=== PATIENT | female | born 1965 | race Caucasian/White ===

== ENCOUNTER 2020-12-10 08:59 | Outpatient (CLI) | payer OTHER, SELFPAY | END 2020-12-10 09:00 | disposition home or self-care (01) | LOC: ANHCOVIDVC 08:59 | PROVIDERS: PCP Emergency Medicine | DX: Z23 Encounter for immunization (principal) | CPT/HCPCS: 0001A; 91300 ==

== ENCOUNTER 2020-12-31 09:06 | Outpatient (CLI) | payer OTHER, SELFPAY | END 2020-12-31 09:07 | disposition home or self-care (01) | LOC: ANHCOVIDVC 09:06 | PROVIDERS: PCP Emergency Medicine | DX: Z23 Encounter for immunization (principal) | CPT/HCPCS: 0002A; 91300 ==

== ENCOUNTER 2021-05-30 03:11 | Emergency (ER) | payer OTHER, SELFPAY ==
--- NOTE | ~2021-05-30 | XR_ITS ---
EXAMINATION: XR knee LT 3V EXAM DATE: 05/30/2021 03:54 INDICATION: Initial encounter following injury, with pain of the left knee. TECHNIQUE: Three projections of the left knee. There is no prior study for comparison. FINDINGS: No evidence osteochondral defect or joint body in the left knee joint. Mild to moderate pa tellofemoral, mild medial tibial femoral compartment primary osteoarthritis. No joint effusion. There are no acute fractures identified. No radiopaque foreign bodies identified. IMPRESSION: Left knee osteoarthritis, patellofemoral compartment most affected. Reviewed, dictated and finalized at location [facility].
[2021-05-30 03:15] VITALS: BP 149/70; PULSE 72; RESP 16; TEMP 36.4; O2SAT 98
--- NOTE | 2021-05-30 03:32 | ED.GENADULT ---
HPI - General Adult General Chief complaint: Extremity Injury, Lower Stated complaint: fall with left knee pain Time Seen by Provider: 05/30/21 03:24 History of Present Illness HPI narrative: Patient is a 55-year-old female presents the emergency department with chief complaint of left knee pain. Patient reports that she was upstairs at work and was attempting to her they walked to a bed alarm and fell. The patient states she landed on her left knee reports there is pain with movement and improved with rest patient has applied an ice pack patient reports that there is no laceration or other injury. Patient states that she did not strike her head had no loss of consciousness. Related Data Allergies Allergy/AdvReac Type Severity Reaction Status Date / Time No Known Allergies Allergy Unverified 05/30/21 03:26 Review of Systems Review of Systems: A 10 system review of systems was completed on the patient and is negative except for what is stated in the HPI. Nursing and ancillary documentation was reviewed. [facility] Family History Family History Mother Patient's mother is in good health Sibling Patient's brother is in good health Social History Social History Smoking status: Never smoker Alcohol intake: never Comments Past medical history significant for hypothyroidism Exam Narrative: GENERAL: Well-appearing, well-nourished, and in no acute distress. HEAD: Normocephalic, atraumatic. EYES: PERRLA and EOMI. ENT: Nares clear, no rhinorrhea or epistaxis. Mucous membranes moist. NECK: Supple. CHEST: Clear to auscultation. No respiratory distress. HEART: Regular rate and rhythm. No murmur heard. Normal peripheral pulses. ABDOMEN: Soft, nontender, nondistended, normal active bowel sounds. EXTREMITIES: Normal range of motion. No edema. There is tenderness to palpation in the left knee there is no bruising present. There is no deformity SKIN: Warm, dry, no rash. NEURO: No focal deficits. Alert and oriented x3. PSYCH: Normal mood and affect. Course Vital Signs Vital signs: Vital Signs Temperature 36.4 C L 05/30/21 03:15 Pulse Rate 72 05/30/21 03:15 Respiratory Rate 16 05/30/21 03:15 Blood Pressure 149/70 H 05/30/21 03:15 Pulse Oximetry 98 05/30/21 03:15 Temperature 36.4 C L 05/30/21 03:15 Pulse Rate 72 05/30/21 03:15 Respiratory Rate 16 05/30/21 03:15 Blood Pressure 149/70 H 05/30/21 03:15 Pulse Oximetry 98 05/30/21 03:15 Medical Decision Making Vital Signs Vital Signs: Vital Signs Temperature 36.4 C L 05/30/21 03:15 Pulse Rate 72 05/30/21 03:15 Respiratory Rate 16 05/30/21 03:15 Blood Pressure 149/70 H 05/30/21 03:15 Pulse Oximetry 98 05/30/21 03:15 Temperature 36.4 C L 05/30/21 03:15 Pulse Rate 72 05/30/21 03:15 Respiratory Rate 16 05/30/21 03:15 Blood Pressure 149/70 H 05/30/21 03:15 Pulse Oximetry 98 05/30/21 03:15 Discharge Plan Discharge Clinical Impression: Left knee sprain Qualifiers: Encounter type: initial encounter Involved ligament of knee: unspecified ligament Qualified Code(s): S83.92XA - Sprain of unspecified site of left knee, initial encounter Patient Disposition: Home, Self-Care Condition: Stable Instructions: Antibiotic Form, Knee Sprain (ED) Prescriptions: No Action levothyroxine 88 mcg tablet 88 mcg PO DAILY Qty: 30 RF: 2 Follow-up/Referrals: Jarvis Mills MD [Primary Care Provider] - Time of Disposition: 04:10
== END 2021-05-30 04:26 | disposition home or self-care (01) ==
PROVIDERS: Emergency Provider Emergency Medicine; PCP Emergency Medicine
DX: S83.92XA Sprain of unspecified site of left knee, initial encounter (principal); W18.30XA Fall on same level, unspecified, initial encounter
CPT/HCPCS: 73562; 99283

== ENCOUNTER 2021-06-30 11:12 | Emergency (ER) | payer OTHER, SELFPAY ==
[2021-06-30 11:22] VITALS: BP 147/79; PULSE 69; RESP 16; TEMP 36.4; O2SAT 100
--- NOTE | 2021-06-30 12:05 | ED.URI ---
HPI - URI/Sore Throat General Chief Complaint: Upper Respiratory Infection Stated Complaint: Cough,Sore Throat Time Seen by Provider: 06/30/21 12:07 Source: patient, RN notes reviewed and old records reviewed Mode of arrival: ambulatory Limitations: no limitations History of Present Illness HPI Narrative: 55-year-old female presents to the [facility] with complaints of cough and sore throat since this morning. Has used cough drops. No other treatment. Denies fevers, chest pain, coughing, abdominal pain, shortness of breath Has a history of thyroid disease denies any past surgical history MD elicited complaint: cough and sore throat Related Data Allergies Allergy/AdvReac Type Severity Reaction Status Date / Time No Known Allergies Allergy Verified 06/30/21 11:39 Review of Systems Review of Systems: All systems reviewed & are unremarkable except as noted in HPI and below Constitutional: Constitutional: Reports no additional constitutional complaints, Denies chills and Denies fever(s) Eyes: Eyes: Reports no additional eye complaints and Denies change in vision ENT: Reports as per HPI and Reports sore throat Cardiovascular: Cardiovascular: Reports no additional cardiovascular complaints and Denies chest pain Respiratory: Respiratory: Reports no additional respiratory complaints, Denies cough and Denies dyspnea Gastrointestinal: Gastrointestinal: Reports no additional gastrointestinal complaints, Denies abdominal pain, Denies nausea and Denies vomiting Musculoskeletal: Musculoskeletal: Reports no additional musculoskeletal complaints Integumentary/Breasts: Skin/Breast: Reports system reviewed and no additional complaints, except as docu Neurologic: Reports system reviewed and no additional complaints, except as documented and Denies headache(s) Psychiatric: Psychiatric: Reports no additional psychiatric complaints Allergic/Immunologic: Allergic/Immunologic: Reports no additional allergic/immunologic complaints [facility] Past Medical History Medical History (Updated 06/30/21 @ 18:18 by Angella Slater) Thyroid disease Surgical History Surgical History (Updated 06/30/21 @ 18:18 by Angella Slater) No significant past surgical history Family History Family History Mother Patient's mother is in good health Sibling Patient's brother is in good health Social History Social History Smoking status: Never smoker Alcohol intake: never Comments At the time of my signature, I reviewed and agree with the nursing past medical, surgical, social, and family history. There is no relevant family history pertinent to the patient complaint. Exam Const: General: healthy appearing, no acute distress and alert Nutritional Appearance: well nourished and obese Orientation/consciousness: patient oriented x3 Limitations: no limitations HENMT: Head: normal to inspection Ears: external ears normal, TM's normal bilaterally and EAC's normal Eyes: Conjunctivae: conjunctivae normal Pupils: Equal, round and reactive pupils present Neck: Neck: normal visual inspection, no lymphadenopathy and no meningeal signs Chest: Chest palpation & inspection: normal inspection of the chest Resp: Effort & Inspection: normal respiratory effort and no use of accessory muscles Auscultation: clear to auscultation bilaterally, no crackles, no rales, no rhonchi and no wheezes Cardio: Rate: regular rate Rhythm: regular rhythm GI: GI Palp: Yes Soft to palpation and No Tenderness to palpation present (GI) : General: Yes no CVA tenderness Back/Spine/Pelvis: Back: no CVA tenderness Skin: General skin exam: normal color Rashes: no rashes Wounds: no wounds Neuro: General: patient oriented x3, moves all extremities, no meningeal signs and no focal motor deficits Speech: normal speech Gait exam (Neuro): Normal gait present Extrem: General: nor
== END 2021-06-30 12:25 | disposition home or self-care (01) ==
PROVIDERS: Emergency Provider Nurse Practitioner; PCP Emergency Medicine
DX: R09.82 Postnasal drip (principal); J02.9 Acute pharyngitis, unspecified; E07.9 Disorder of thyroid, unspecified
CPT/HCPCS: 87081; 87880; 99213; G0463

== ENCOUNTER 2022-10-09 16:20 | Emergency (ER) | payer OTHER, SELFPAY ==
--- NOTE | ~2022-10-09 | CT_ITS ---
Clinical Indication: Dyspnea, Covid [address] Scan of the Chest with Contrast: Technique: Contiguous sections were acquired throughout the chest after intravenous administration of 100 cc of Omnipaque 350. Dose reduction technique was used on this scan by utilizing automated expos ure control and iterative reconstruction technique. The dose-length product (DLP) was 281.49 mGy-cm. COMPARISON: 06/06/2006 Findings: There is no evidence of any significant mediastinal, hilar or axillary lymphadenopathy. There is no f illing defect in the pulmonary arterial tree to suggest pulmonary embolus. There is no evidence of ao rtic dissection or aneurysm. There is no evidence of pleural or pericardial effusion. The lungs are clear. No pulmonary nodules or infiltrates are noted. Images through the upper abdomen reveal no abnormalities. Impression: No evidence of pulmonary embolus, aortic dissection, or aortic aneurysm. Clear lungs. Reviewed, dictated and finalized at [facility]. RTMENT CLINICIAN Impression: No evidence of pulmonary embolus, aortic dissection, or aortic aneurysm. Clear lungs.
--- NOTE | ~2022-10-09 | XR_ITS ---
EXAMINATION: XR chest 1V DATE: 10/09/2022 18:36 INDICATION: Cough. Shortness of breath. Nausea and vomiting. Chest pain. TECHNIQUE: A single frontal view of the chest was obtained. COMPARISON: Chest single view 06/06/2006, chest CT 06/06/2006 FINDINGS: The chest demonstrates clear lungs without pneumonia, pleural effusion, or pneumothorax. Th e heart size is normal. Surgical clips in the right upper quadrant are likely from cholecystectomy. IMPRESSION: 1. No acute cardiopulmonary disease. Reviewed, dictated and finalized at location A. [employer]
[2022-10-09 16:51] VITALS: BP 139/81; PULSE 82; RESP 16; TEMP 36.8; O2SAT 99
--- NOTE | 2022-10-09 17:51 | ECG_ITS ---
Measurements Intervals [place] Rate: 86 P: 39 [place]: 120 QRS: 8 QRSD: 81 T: 29 QT: 351 QTc: 421 Interpretive Statements SINUS RHYTHM WITHIN NORMAL LIMITS NO PREVIOUS ECG AVAILABLE FOR COMPARISON Electronically Signed On 10-10-2022 15:16:32 HVAC MANAGER by Jarvis Catherine M.D.
[2022-10-09 18:41] LABS: Basophils Percent Auto 0.3 % (0.2-1.2); Eosinophils Percent Auto 0.5 % (0-4.4); Hematocrit 42.7 % (37.0-47.0); Hemoglobin 14.3 g/dL (12.0-15.0); Immature Granulocyte Absolute 0.02 K/mm3 (0.00-0.031); Immature Granulocyte Percent A 0.3 % (0-0.5); Lymphocytes Absolute Auto 0.74 K/mm3 (0.9-3.2); Lymphocytes Percent Auto 12.5 % (18.3-44.2); Mean Corpuscular HGB Conc 33.5 g/dl (32-36); Mean Corpuscular Hemoglobin 29.2 pg (26-34); Mean Corpuscular Volume 87.3 fl (80-100); Monocytes Absolute Auto 1.4 K/mm3 (0.1-0.6); Monocytes Percent Auto 23.4 % (2.6-8.5); Neutrophils Absolute Auto 3.7 K/mm3 (1.3-6.7); Platelet Count Result 194 k/mm3 (150-375); Red Blood Count 4.89 M/mm3 (4.2-5.4); Red Cell Distribution Width 13.2 % (11.5-14.5); White Blood Count 5.9 K/mm3 (4.5-10.0)
[2022-10-09 18:57] LABS: Alanine Aminotransferase 17 U/L (6-35); Albumin Level 4.6 g/dL (3.5-5.1); Alkaline Phosphatase 98 U/L (38-126); Anion Gap 6 mmol/L (8-16); Aspartate Amino Transferase 26 U/L (14-36); Bilirubin,Total 0.9 mg/dL (0.2-1.3); Blood Urea Nitrogen 16 mg/dL (7-17); Calcium 9.4 mg/dL (8.4-10.2); Carbon Dioxide 30 mmol/L (22-30); Chloride 101 mmol/L (98-107); Estimated CRCL calculation 58 ml/min; Estimated Glomerular Filt Rate > 60; Glucose 100 mg/dL (65-110); Lipase 37 U/L (23-300); Potassium 3.6 mmol/L (3.4-5.0); Sodium 137 mmol/L (137-145)
[2022-10-09 19:30] LABS: Influenza A QL RT-PCR Negative (Negative); Influenza B QL RT-PCR Negative (Negative); RSV RNA, RT-PCR Negative (Negative); SARS-CoV-2 RNA PCR Positive
[2022-10-09 19:44] VITALS: BP 150/101; PULSE 75; O2SAT 98
[2022-10-09 21:37] VITALS: BP 143/71; PULSE 89; RESP 18; TEMP 36.5; O2SAT 98
--- NOTE | 2022-10-09 22:45 | ED.GENADULT ---
HPI - General Adult General Chief complaint: Shortness of Breath/Dyspnea Stated complaint: sob/vomiting/becerril Time Seen by Provider: 10/09/22 22:27 Source: RN notes reviewed History of Present Illness HPI narrative: Patient presents emergency department from home for shortness of breath. Patient states that shortness of breath with exertion began today. States that shortness of breath is worse with movement but has no shortness of breath currently sitting in bed states has been associate with a cough this been nonproductive. Patient also notes that she has been having nausea and vomiting earlier today but denies any current nausea or vomiting. She denies any fevers or chills chest pain abdominal pain diarrhea or any other symptoms. States that her is currently being evaluated the emergency department for similar symptoms. States she did have her COVID vaccinations Related Data Allergies Allergy/AdvReac Type Severity Reaction Status Date / Time No Known Allergies Allergy Verified 10/09/22 16:54 Review of Systems Review of Systems: Gen.: Denies fevers or chills ENT: Denies congestion Respiratory: See HPI CV: Denies chest pain or palpitations GI: Denies abdominal pain or diarrhea. Reports nausea and vomiting Musculoskeletal: Denies back pain or muscle pain Neuro: Denies numbness, tingling, weakness or focal weakness Skin: Denies rash Except as documented, all other systems reviewed and negative [facility] Past Medical History Medical History Thyroid disease Surgical History Surgical History No significant past surgical history Family History Family History Mother Patient's mother is in good health Sibling Patient's brother is in good health Social History Social History Smoking status: Never smoker Alcohol intake: never Exam Narrative: APPEARANCE: No acute distress, nontoxic, resting in bed EYES: EOMI HEENT: Normocephalic, atraumatic, OMM RESPIRATORY: No respiratory distress Clear to auscultation bilaterally with no rhonchi wheezing or rales. CARDIOVASCULAR: Regular rate and rhythm without murmurs rubs or gallops. ABDOMINAL: Soft, nontender, nondistended, no rebound or guarding MUSCULOSKELETAl: Moves all extremities. No clubbing, cyanosis or edema. NEURO: Awake and alert. Following commands, speech normal, no focal deficits SKIN:: Warm, dry. No rashes lesions or abrasions PSYCHIATRIC: Normal affect/mood,, no erythema or exudate posterior pharynx Course Course Emergency Course: Patient is remained hemodynamically stable throughout stay in ED Discussed with patient results of workup and diagnosis. Discussed need for follow-up with primary care, proper use of medication, and reasons to return to the emergency department. Patient understands and agrees to current treatment plan Vital Signs Vital signs: Vital Signs Temperature 98.3 F 10/09/22 16:51 Pulse Rate 82 10/09/22 16:51 Respiratory Rate 16 10/09/22 16:51 Blood Pressure 139/81 10/09/22 16:51 Pulse Oximetry 99 10/09/22 16:51 Oxygen Delivery Room Air 10/09/22 16:51 Temperature 97.7 F 10/09/22 21:37 Pulse Rate 89 10/09/22 21:37 Respiratory Rate 18 10/09/22 21:37 Blood Pressure 143/71 H 10/09/22 21:37 Pulse Oximetry 98 10/09/22 21:37 Oxygen Delivery Room Air 10/09/22 16:51 Medical Decision Making MDM Narrative Medical decision making narrative: Patient presents for shortness of breath COVID-positive in the emergency department symptoms began yesterday she had lab results that with were within normal limits D-dimer was mildly elevated remainder of electrolytes are normal and a COVID test was positive a CT of the chest shows no signs of pulmonary embolism no infiltrates are seen patien
[2022-10-09 23:38] LABS: D Dimer 0.68 ug/mL (<0.48)
[2022-10-10 02:52] VITALS: BP 127/69; PULSE 74; RESP 18; O2SAT 97
== END 2022-10-10 02:53 | disposition home or self-care (01) ==
PROVIDERS: Emergency Medicine; Emergency Provider Emergency Medicine; PCP Emergency Medicine
DX: U07.1 COVID-19 (principal); E07.9 Disorder of thyroid, unspecified
CPT/HCPCS: 36415; 71045; 71275; 80053; 83690; 85025; 85380; 87637; 93005; 96365; 99284; J0131; Q9967

== ENCOUNTER 2023-01-23 09:32 | Outpatient (CLI) | payer OTHER, SELFPAY ==
[2023-01-23 10:08] LABS: Cholesterol 243 mg/dL (0-200); HDL Direct 47 mg/dL; Triglycerides 156 mg/dL (<150)
[2023-01-23 10:19] LABS: LDL Cholesterol Direct 145 mg/dL
== END 2023-01-23 09:33 | disposition home or self-care (01) ==
LOC: ANHLAB 09:34
PROVIDERS: PCP Emergency Medicine; Visit Provider Emergency Medicine
DX: E03.9 Hypothyroidism, unspecified (principal); Z13.220 Encounter for screening for lipoid disorders
CPT/HCPCS: 36415; 80061; 84443